=== PATIENT | female | born 1990 | race Caucasian/White ===

== ENCOUNTER 2016-04-19 16:12 | Emergency (ER) | payer OTHER ==
[~2016-04-19] VITALS: Wt 115.0 kg
[~2016-04-19 16:12] MED LIST: BACTDS PO; DOXY-220 PO; HYDR-3498 PO; IBUP-1542 PO
--- NOTE | 2016-04-19 18:03 | ERD ---
ER Documentation Chief Complaint Date/Time DATE: 04/19/16 TIME: 18:02 Chief Complaint sharp chest pain for the past week . nausea no vomiting. no diaphoresis HPI This is a 25-year-old female presenting to the emergency department complaining of sharp left-sided chest pain that radiates to the right upper quadrant for the past week and a half. Patient states that she has nausea. She denies any vomiting. She rates the pain 10 out of 10. Patient states that she has a history of cholecystectomy in 2010. She denies any diarrhea, fevers. Patient states that the pain is increased when she takes deep breath in. She denies any oral contraceptives, recent traveling or recent surgery ROS All systems reviewed and are negative except as per history of present illness. Medications Home Meds Active Scripts Acetaminophen* (Tylenol*) 325 Mg Tablet, 2 TAB PO Q6 Y for PAIN AND OR ELEVATED TEMP, #20 TAB Prov:JESSICA MORLEY PA-C 04/19/16 Ondansetron (Ondansetron Odt) 4 Mg Tab.rapdis, 4 MG PO Q6H Y for NAUSEA AND/OR VOMITING, #10 TAB Prov:JESSICA MORLEY PA-C 04/19/16 Famotidine* (Pepcid*) 20 Mg Tablet, 20 MG PO DAILY for 14 Days, TAB Prov:JESSICA MORLEY PA-C 04/19/16 Ibuprofen* (Motrin*) 600 Mg Tab, 600 MG PO Q6H Y for PAIN AND OR ELEVATED TEMP, #30 TAB Prov:ANGIE WHITE MD 03/23/16 Hydrocodone Bit-Acetaminophen* ([place]*) 5-325 Mg Tab, 1 TAB PO Q4H Y for PAIN, # 14 TAB Prov:CARINA SALAZAR 09/16/15 Doxycycline Monohydrate* (Doxycycline Monohydrate*) 100 Mg Tablet, 100 MG PO BID for 14 Days, #28 TAB Prov:CARINA SALAZAR 09/16/15 Sulfamethoxazole-Trimethoprim* (Bactrim* DS) 800-160 Mg Tab, 1 TAB PO BID for 14 Days, #28 TAB Prov:CARINA SALAZAR 09/16/15 Hydrocodone Bit-Acetaminophen* ([place]*) 5-325 Mg Tab, 1 TAB PO Q6 Y for PAIN, # 7 TAB Prov:BETTINA SILVA DO 08/06/15 Sulfamethoxazole-Trimethoprim* (Bactrim* DS) 800-160 Mg Tab, 1 TAB PO BID for 14 Days, TAB Prov:BETTINA SILVA DO 08/06/15 Hydrocodone Bit-Acetaminophen* ([place]*) 5-325 Mg Tab, 1 TAB PO Q6 Y for PAIN, # 7 TAB Prov:HECTOR JIMÉNEZ NP 07/29/15 Allergies Allergies: Coded Allergies: vancomycin (Unverified Allergy, Unknown, 03/23/16) PMhx/Soc History of Surgery: Yes (CHOLECYSTECTOMY) Anesthesia Reaction: No Hx Neurological Disorder: No Hx Respiratory Disorders: No Hx Cardiac Disorders: No Hx Psychiatric Problems: No Hx Miscellaneous Medical Probl: No Hx Alcohol Use: No Hx Substance Use: No Hx Tobacco Use: Yes Smoking Status: Never smoker Physical Exam Vitals Vital Signs Date Time Temp Pulse Resp B/P Pulse Ox O2 Delivery O2 Flow Rate FiO2 04/19/16 16:13 97.7 94 20 133/84 98 Physical Exam GENERAL: no acute distress, non-toxic appearing, sitting up in bed' Morbidly obese HENT: normocephalic/atraumatic EYES: conjunctiva is normal NECK: no noticeable or palpable swelling, no carotid bruits, no JVD CARDIOVASCULAR: RRR, good S1S2, no murmurs or gallops heard PULM: clear to auscultation, no use of accessory muscles, no crackles or wheezes. ABDOMEN: normal bowel sounds, abdomen soft Tender palpation the right upper quadrant EXT: no edema, cyanosis or clubbing MUSCULOSKELETAL: 5/5 strength, normal range of motion, no swollen or erythematous joints. NEURO: alert and oriented SKIN: no rashes, skin warm and dry, no erythematous areas BREAST: breast exam was not relevant, therefore not preformed PSYCH: normal mood and mentation, denies suicidal or homicidal ideation and thoughts Result Diagram: 04/19/16180404/19/161804 Results 24 hrs Laboratory Tests Test 04/19/16 18:00 04/19/16 18:05 Urine Bacteria MANY Urine Bilirubin NEGATIVE Urine Clarity CLOUDY Urine Color LT. YELLOW Urine Glucose NEGATIVE% Urine Hemoglobin 1+ Urine Ketones NEGATIVE Urine Leukocyte Esterase NEGATIVE Urine Microscopic RBC 2-5/HPF Urine Microscopic WBC NONE SEEN/HPF Urine Nitrite NEGATIVE Urine Specific [place] >=1.030 Urine Squamous Epithelial Cells MANY Urine Total Protein NEGATIVE Urine Urobilinogen 0.2 E.U./dL Urine pH 5.5 Alanine Aminotransferase (ALT/SGPT) 34IU/L Albumin 4.6g/dl Albumin/Globulin Ratio 1.17 Alkaline Phosphatase 110IU/L Anion Gap 18 Aspartate Amino Transf (AST/SGOT) 29IU/L Basophils # 0.110^3/ul Basophils % 0.5% Blood Morphology Comment Blood Urea Nitrogen 12mg/dl Calcium Level 9.6mg/dl Carbon Dioxide Level 28mmol/L Chloride Level 101mmol/L Creatinine 0.58mg/dl Direct Bilirubin 0.00mg/dl Eosinophils # 0.410^3/ul Eosinophils % 4.0% Globulin 3.90g/dl Glucose Level 85mg/dl Hematocrit 40.4% Hemoglobin 13.5g/dl Indirect Bilirubin 0.4mg/dl Lipase 155U/L Lymphocytes # 3.410^3/ul Lymphocytes % 30.1% Mean Corpuscular Hemoglobin 29.3pg Mean Corpuscular Hemoglobin Concent 33.4g/dl Mean Corpuscular Volume 87.9fl Mean Platelet Volume 11.0fl Monocytes # 0.710^3/ul Monocytes % 6.1% Neutrophils # 6.710^3/ul Neutrophils % 59.3% Nucleated Red Blood Cells # 0.010^3/ul Nucleated Red Blood Cells % 0.0/100WBC Platelet Count 29427^3/UL Potassium Level 4.3mmol/L Red Blood Count 4.6010^6/ul Red Cell Distribution Width 13.2% Sodium Level 143mmol/L Total Bilirubin 0.4mg/dl Total Protein 8.5g/dl Troponin I < 0.012ng/ml White Blood Count 11.210^3/ul Procedures/MDM This is a 25-year-old female presenting to the emergency department complaining of a sharp chest pain that radiates to her right upper quadrant abdomen for the past week and a half. Patient is status post cholecystectomy in 2010. On examination patient appears well, she has stable vital signs. She was speaking clearly and did not seem to be in any distress. An EKG was done and did not show any evidence of STEMI. Chest x-ray did not show any evidence of infiltrates, pneumothorax or pleural effusion.. Lab work was drawn. CBC did not show any evidence of leukocytosis or anemia. CMP did not show any evidence of renal, liver, or electrolyte abnormalities. Lipase was normal. UA did not show any evidence of hemoglobin or urinary tract infection. Lipase is normal, there was no evidence of pancreatitis. A gallbladder ultrasound was done and did not show any choledocholithiasis or dilations of the bile ducts. Patient likely has gastritis since she describes the pain worsening after food.. There was no evidence of acute abdomen or ACS or other acute cardiopulmonary conditions. Patient perked score is low, I will low suspicion for pulmonary embolism. I discussed the patient that she is suitable to follow-up with her primary care physician to get a referral to see a salvage inspector. Discussed return to the ER for any worsening signs or symptoms. Patient was given a prescription for Zofran, Pepcid and Tylenol. Patient is very stable and neurovascular intact for discharge. She understands and agrees with this plan EKG: read and signed off by myself and Jud Rate/Rhythm: 89 bpm sinus arrhythmia QRS, ST, T-waves: No changes consistent w/ acute ischemia Impression: No evidence of ischemia or arrhythmia Departure Diagnosis: Primary Impression: Chest pain Chest pain type: unspecified Qualified Code: R07.9 - Chest pain, unspecified type Additional Impression: Abdominal pain Abdominal location: right upper quadrant Qualified Code: R10.11 - Right upper quadrant abdominal pain Condition: Stable JESSICA MORLEY PA-C Apr 19, 2016 18:03
[2016-04-19 18:23] LABS: BASOPHIL # 0.1 10^3/ul (0.0-0.1); BASOPHILS % 0.5 % (0.0-2.0); EOSINOPHILS # 0.4 10^3/ul (0.0-0.5); HEMATOCRIT 40.4 % (37.0-47.0); HEMOGLOBIN 13.5 g/dl (12.0-16.0); LYMPHOCYTES # 3.4 10^3/ul (0.8-2.9); LYMPHOCYTES % 30.1 % (15.0-51.0); MEAN CORPUSCULAR HEMOGLOBIN 29.3 pg (29.0-33.0); MEAN CORPUSCULAR HGB CONC 33.4 g/dl (32.0-37.0); MEAN CORPUSCULAR VOLUME 87.9 fl (82.0-101.0); MONOCYTE # 0.7 10^3/ul (0.3-0.9); MONOCYTES % 6.1 % (0.0-11.0); NEUTROPHIL # 6.7 10^3/ul (1.6-7.5); NEUTROPHILS % 59.3 % (39.0-77.0); PLATELET COUNT 253 10^3/UL (140-440); RED CELL DISTRIBUTION WIDTH 13.2 % (11.5-14.5); UNCORRECTED WBC 11.2 10^3/ul (4.8-10.8); WHITE BLOOD COUNT 11.2 10^3/ul (4.8-10.8)
[2016-04-19 18:24] LABS: ADD UMIC YES; URINE BILIRUBIN (Dip) NEGATIVE (NEGATIVE); URINE BLOOD (Dip) 1+ (NEGATIVE); URINE COLOR LT. YELLOW (YELLOW); URINE GLUCOSE (Dip) NEGATIVE (NEGATIVE); URINE KETONES (Dip) NEGATIVE (NEGATIVE); URINE LEUKOCYTE ESTERASE (Dip) NEGATIVE (NEGATIVE); URINE NITRITE (Dip) NEGATIVE (NEGATIVE); URINE TOTAL PROTEIN (Dip) NEGATIVE (NEGATIVE); URINE UROBILINOGEN (Dip) 0.2 E.U./dL (0.1-1.0)
[2016-04-19 18:25] LABS: CONDITION 1
[2016-04-19 18:39] LABS: ALBUMIN 4.6 g/dl (3.3-4.9); CHLORIDE 101 mmol/L (97-110); SODIUM 143 mmol/L (135-144)
[2016-04-19 18:40] LABS: POTASSIUM 4.3 mmol/L (3.5-5.1)
[2016-04-19 18:41] LABS: CREATININE 0.58 mg/dl (0.44-1.00)
[2016-04-19 18:42] LABS: ALANINE AMINOTRANSFERASE 34 IU/L (13-69); ALBUMIN/GLOBULIN RATIO 1.17; ALKALINE PHOSPHATASE 110 IU/L (42-121); ANION GAP 18 (8-16); ASPARTATE AMINO TRANSFERASE 29 IU/L (15-46); BILIRUBIN,INDIRECT 0.4 mg/dl (0-1.1); BILIRUBIN,TOTAL 0.4 mg/dl (0.2-1.3); BLOOD UREA NITROGEN 12 mg/dl (7-20); CALCIUM 9.6 mg/dl (8.4-10.2); CARBON DIOXIDE 28 mmol/L (21-31); GLUCOSE 85 mg/dl (70-220); TOTAL PROTEIN 8.5 g/dl (6.1-8.1)
[2016-04-19 18:42] LABS: BACTERIA,URINE MANY; SQUAMOUS EPITHELIAL CELL,UR MANY
[2016-04-19 18:54] LABS: TROPONIN-I < 0.012 ng/ml (0.00-0.12)
--- NOTE | 2016-04-19 19:00 | RADRPT ---
PROCEDURE: Chest x-ray CLINICAL INDICATION: Palpitations TECHNIQUE: Chest single view COMPARISON: None FINDINGS: The heart is normal in size. The pulmonary vessels are normal in caliber. The lungs are clear. Th e costophrenic angles are sharp. The visualized bony thorax is unremarkable. IMPRESSION: No acute cardiopulmonary disease. RPTAT: HH .Sang Kauffman MD, MD Date Time Electronically viewed and signed by .Sang Kauffman MD, on 04/19/2016 19:00 .W/
--- NOTE | 2016-04-19 19:01 | RADRPT ---
PROCEDURE: US gallbladder . CLINICAL INDICATION: Prior cholecystectomy, now with right upper quadrant pain. TECHNIQUE: Multiple real-time images were acquired of the patient's abdomen utilizing a high resol ution transducer. COMPARISON: None FINDINGS: Gallbladder is surgically absent. Gallbladder fossa is not visualized secondary to overlying bowel gas. The common bile duct measures 2 mm in maximal dimension. No free fluid is identified. Right kidney measures 119 x 48 x 55 mm. No evident renal mass, hydrone phrosis retained calculus. Liver measures 153 mm. IMPRESSION: 1. Gallbladder fossa is not visualized secondary to overlying bowel gas. 2. Otherwise, no acute process in the upper quadrant. RPTAT: [facility] Physician Yisel Date Time Electronically viewed and signed by Physician Yisel on 04/19/2016 19:00 RS/
[2016-04-19] MEDS ORDERED: ONDA4TAB14 PO (19:07)
[2016-04-19] MEDS ORDERED: FAMO-18 PO (19:07)
[2016-04-19] MEDS ORDERED: ACET325T33 PO (19:07)
== END 2016-04-19 19:19 | disposition home or self-care (01) ==
LOC: FTE 16:12
DX: R07.9 Chest pain, unspecified (principal); R10.11 Right upper quadrant pain; R11.0 Nausea
CPT/HCPCS: 71010; 76705; 80053; 81001; 83690; 84484; 85025; 93005; Z7502; 81003

== ENCOUNTER 2016-05-26 19:24 | Emergency (ER) | payer OTHER ==
[~2016-05-26] VITALS: Ht 165.1 cm; Wt 120.0 kg
[~2016-05-26 19:24] MED LIST changes: +ACET325T33 PO; +FAMO-18 PO; +ONDA4TAB14 PO
[2016-05-26 19:32] VITALS: Ht 165.1 cm; Wt 120.0 kg
[2016-05-26] MEDS ORDERED: LIDOCAINE 1% (MDV) 20 ML INJ SC ONE (20:30)
[2016-05-26] MEDS ORDERED: IBUPROFEN 800 MG TAB PO ONE (21:00)
[2016-05-26] MEDS ORDERED: METR500T PO (21:07)
[2016-05-26] MEDS ORDERED: MUPI22OI2 NASAL (21:07)
[2016-05-26] MEDS ORDERED: CEPH-443 PO (21:07)
[2016-05-26] MEDS ORDERED: IBUP800T25 PO (21:08)
--- NOTE | 2016-05-26 21:34 | ERD ---
ER Documentation Chief Complaint Date/Time DATE: 05/26/16 TIME: 21:10 Chief Complaint abscess between legs for past 2 days HPI 25-year-old female presents to ED complaining of abscess in the right buttocks 2 days. Patient reports pain, and able to sit down. She did not take any pain medications at home. Patient also reports that she gets frequent cellulitis and abscesses, almost once every month. She is also concerned that she may be allergic to sulfa medications. States that every time she took sulfa she has red, itchy spots on her abdomen. She took one sulfa antibiotic tablets yesterday. Denies fever or chills. Denies shortness of breath. Denies oral swelling. In addition patient is complaining of vaginal itching with fishy odors. Patient stated that she had had this for quite some time. Denies vaginal discharge. Denies pelvic pain. ROS All systems reviewed and are negative except as per history of present illness. Medications Home Meds Active Scripts Ibuprofen* (Motrin*) 800 Mg Tab, 800 MG PO Q8 Y for PAIN AND OR ELEVATED TEMP, # 30 TAB Prov:GE LUNDBERG NP 05/26/16 Mupirocin* (Bactroban*) 2% -22 Gram Oint...g., 1 APPLIC NASAL BID for 14 Days, EA Prov:GE LUNDBERG NP 05/26/16 Metronidazole* (Flagyl*) 500 Mg Tablet, 500 MG PO TID for 7 Days, TAB Prov:GE LUNDBERG NP 05/26/16 Cephalexin* (Keflex*) 500 Mg Capsule, 500 MG PO QID for 7 Days, CAP Prov:GE LUNDBERG NP 05/26/16 Acetaminophen* (Tylenol*) 325 Mg Tablet, 2 TAB PO Q6 Y for PAIN AND OR ELEVATED TEMP, #20 TAB Prov:JESSICA MORLEY PA-C 04/19/16 Ondansetron (Ondansetron Odt) 4 Mg Tab.rapdis, 4 MG PO Q6H Y for NAUSEA AND/OR VOMITING, #10 TAB Prov:JESSICA MORLEY PA-C 04/19/16 Famotidine* (Pepcid*) 20 Mg Tablet, 20 MG PO DAILY for 14 Days, TAB Prov:JESSICA MORLEY PA-C 04/19/16 Ibuprofen* (Motrin*) 600 Mg Tab, 600 MG PO Q6H Y for PAIN AND OR ELEVATED TEMP, #30 TAB Prov:ANGIE WHITE MD 03/23/16 Hydrocodone Bit-Acetaminophen* ([place]*) 5-325 Mg Tab, 1 TAB PO Q4H Y for PAIN, # 14 TAB Prov:CARINA SALAZAR 09/16/15 Doxycycline Monohydrate* (Doxycycline Monohydrate*) 100 Mg Tablet, 100 MG PO BID for 14 Days, #28 TAB Prov:MORENO SALAZARSON 09/16/15 Sulfamethoxazole-Trimethoprim* (Bactrim* DS) 800-160 Mg Tab, 1 TAB PO BID for 14 Days, #28 TAB Prov:CARINA SALAZAR 09/16/15 Hydrocodone Bit-Acetaminophen* ([place]*) 5-325 Mg Tab, 1 TAB PO Q6 Y for PAIN, # 7 TAB Prov:BETTINA SILVA DO 08/06/15 Sulfamethoxazole-Trimethoprim* (Bactrim* DS) 800-160 Mg Tab, 1 TAB PO BID for 14 Days, TAB Prov:RICARDOBETTINA DO 08/06/15 Hydrocodone Bit-Acetaminophen* ([place]*) 5-325 Mg Tab, 1 TAB PO Q6 Y for PAIN, # 7 TAB Prov:HECTOR JIMÉNEZ NP 07/29/15 Allergies Allergies: Coded Allergies: vancomycin (Unverified Allergy, Unknown, 03/23/16) Uncoded Allergies: SULFA (Allergy, Intermediate, Rash, 05/26/16) PMhx/Soc Medical and Surgical Hx: pt denies Medical Hx History of Surgery: Yes (CHOLECYSTECTOMY) Anesthesia Reaction: No Hx Neurological Disorder: No Hx Respiratory Disorders: No Hx Cardiac Disorders: No Hx Psychiatric Problems: No Hx Miscellaneous Medical Probl: No Hx Alcohol Use: No Hx Substance Use: No Hx Tobacco Use: Yes Smoking Status: Current every day smoker Physical Exam Vitals Vital Signs Date Time Temp Pulse Resp B/P Pulse Ox O2 Delivery O2 Flow Rate FiO2 05/26/16 19:32 98.6 120 18 154/91 97 Physical Exam General impression: Well-developed, well-nourished. Alert, oriented, in no acute distress Head: Normocephalic, atraumatic. ENT: Nasal mucosa, oral mucosa and oropharynx are normal. Neck: Supple, nontender. No lymphadenopathy. No nuchal rigidity. Respiration: Normal respiratory effort. Lungs clear to auscultate bilaterally. No wheezes, rales or rhonchi. Cardiovascular: Regular rate and rhythm. No murmurs or extra heart sounds. Neuro: Mental status normal, speech normal. TICKET MARKER grossly intact. Skin: Normal turgor. A 3 cm size erythema induration noted on the right buttock, with slight fluctuance in the middle. Patient also has 2 erythematous macules on her torso. Psych: Normal mood and affect. Results 24 hrs Current Medications Medications (Trade) Dose Ordered Sig/Vito Route PRN Reason Start Time Stop Time Status Last Admin Dose Admin Lidocaine (Xylocaine 1% (Mdv) 20 ml) 20 ml ONCE ONCE SC 05/26/16 20:30 05/26/16 20:32 DC Ibuprofen (Motrin) 800 mg ONCE ONCE PO 05/26/16 21:00 05/26/16 21:01 DC 05/26/16 20:48 Procedures/MDM Procedure note: Incision and Drainage Verbal consent obtained for incision and drainage of patient's abscess. The area was prepped with Betadine. Lidocaine 1% was infiltrated for local anesthesia. After appropriate anesthesia, incision was made using #11 blade. Small amount of purulent discharge was drained from the abscess. The abscess was probed for loculation. The wound was then cleaned and dressed. Patient tolerated procedure well. Medical decision-making: Well-appearing 25-year-old female presented to ED with abscess in her right buttock. Abscess was drained. Patient is concerned for possible sulfa allergy. Although her lesions not has appearance of allergic reaction, I decided not to give her Bactrim today. Keflex will be prescribed. In addition , Bactroban ointment applied nasally twice daily for 2 weeks is also prescribed for the patient to eradicate MRSA as a suspect patient may have colonization. Patient also reports symptoms consistent with bacterial vaginitis. I will prescribe Flagyl for her. Patient advised to follow-up with her PCP in 2 days for wound check. Departure Diagnosis: Primary Impression: Abscess Additional Impression: Bacterial vaginitis Condition: Good Patient Instructions: Abscess, Incision And Drainage, Vaginitis, Bacterial Additional Instructions: Return to this facility in 2 DAYS for a follow-up exam.Return sooner if your condition worsens. GE LUNDBERG NP May 26, 2016 21:28
== END 2016-05-26 21:13 | disposition home or self-care (01) ==
LOC: FTE 19:24
DX: L02.31 Cutaneous abscess of buttock (principal); N76.0 Acute vaginitis; F17.210 Nicotine dependence, cigarettes, uncomplicated
CPT/HCPCS: 10060; Z7502; Z7610

== ENCOUNTER 2016-06-28 17:38 | Emergency (ER) | payer OTHER ==
[~2016-06-28] VITALS: Wt 127.0 kg
[~2016-06-28 17:38] MED LIST changes: +CEPH-443 PO; +IBUP800T25 PO; +METR500T PO; +MUPI22OI2 NASAL
--- NOTE | 2016-06-28 19:23 | ERD ---
ER Documentation Chief Complaint Date/Time DATE: 06/28/16 TIME: 19:21 Chief Complaint LOW BACK PAIN INCREASING PAST FEW WKS. TRAUMA 3 YRS AGO. NO RECENT TRAUMA HPI This is a 25-year-old female that presents to the ER with lower back pain that has been going on intermittently for the last year. Over the last week patient states that back pain has gotten significantly worse it is sharp in nature it is worse whenever patient bends forward. She does not have any pain while walking she's leaning forward. Patient states that 2 years ago she fell down stairs hurting her back, patient however never went to the doctor. Patient denies any urinary bowel incontinence. She denies any urinary frequency or dysuria. Patient denies any fevers or chills. She denies any IV drug use. She went to her primary care doctor and was given trauma all, however this has not helped her pain. ROS 12 point review of systems was done, all negative except per HPI. Medications Home Meds Active Scripts Ibuprofen* (Motrin*) 600 Mg Tab, 600 MG PO Q6, #30 TAB Prov:MARCI SCHULTZ 06/28/16 Hydrocodone/Acetaminophen ([place] 5-325 Tablet) 1 Each Tablet, 1 TAB PO Q6H Y for PAIN, #10 TAB Prov:MARCI SCHULTZ 06/28/16 Orphenadrine Citrate (Norflex) 100 Mg Tablet.sa, 100 MG PO BID for 5 Days, TAB.SA Prov:MARCI SCHULTZ 06/28/16 Ibuprofen* (Motrin*) 800 Mg Tab, 800 MG PO Q8 Y for PAIN AND OR ELEVATED TEMP, # 30 TAB Prov:GE LUNDBERG NP 05/26/16 Mupirocin* (Bactroban*) 2% -22 Gram Oint...g., 1 APPLIC NASAL BID for 14 Days, EA Prov:GE LUNDBERG NP 05/26/16 Metronidazole* (Flagyl*) 500 Mg Tablet, 500 MG PO TID for 7 Days, TAB Prov:GE LUNDBERG SEARCH LEAD 05/26/16 Cephalexin* (Keflex*) 500 Mg Capsule, 500 MG PO QID for 7 Days, CAP Prov:GE LUNDBERG SEARCH LEAD 05/26/16 Acetaminophen* (Tylenol*) 325 Mg Tablet, 2 TAB PO Q6 Y for PAIN AND OR ELEVATED TEMP, #20 TAB Prov:JESSICA MORLEY PA-C 04/19/16 Ondansetron (Ondansetron Odt) 4 Mg Tab.rapdis, 4 MG PO Q6H Y for NAUSEA AND/OR VOMITING, #10 TAB Prov:JESSICA MORLEY PA-C 04/19/16 Famotidine* (Pepcid*) 20 Mg Tablet, 20 MG PO DAILY for 14 Days, TAB Prov:JESSICA MORLEY PA-C 04/19/16 Ibuprofen* (Motrin*) 600 Mg Tab, 600 MG PO Q6H Y for PAIN AND OR ELEVATED TEMP, #30 TAB Prov:ANGIE WHITE MD 03/23/16 Hydrocodone Bit-Acetaminophen* ([place]*) 5-325 Mg Tab, 1 TAB PO Q4H Y for PAIN, # 14 TAB Prov:CARINA SALAZAR 09/16/15 Doxycycline Monohydrate* (Doxycycline Monohydrate*) 100 Mg Tablet, 100 MG PO BID for 14 Days, #28 TAB Prov:CARINA SALAZAR 09/16/15 Sulfamethoxazole-Trimethoprim* (Bactrim* DS) 800-160 Mg Tab, 1 TAB PO BID for 14 Days, #28 TAB Prov:CARINA SALAZAR 09/16/15 Hydrocodone Bit-Acetaminophen* ([place]*) 5-325 Mg Tab, 1 TAB PO Q6 Y for PAIN, # 7 TAB Prov:BETTINA SILVA DO 08/06/15 Sulfamethoxazole-Trimethoprim* (Bactrim* DS) 800-160 Mg Tab, 1 TAB PO BID for 14 Days, TAB Prov:BETTINA SILVA DO 08/06/15 Hydrocodone Bit-Acetaminophen* ([place]*) 5-325 Mg Tab, 1 TAB PO Q6 Y for PAIN, # 7 TAB Prov:HECTOR JIMÉNEZ NP 07/29/15 Allergies Allergies: Coded Allergies: vancomycin (Unverified Allergy, Unknown, 03/23/16) Uncoded Allergies: SULFA (Allergy, Intermediate, Rash, 05/26/16) PMhx/Soc History of Surgery: Yes (CHOLECYSTECTOMY) Anesthesia Reaction: No Hx Neurological Disorder: No Hx Respiratory Disorders: No Hx Cardiac Disorders: No Hx Psychiatric Problems: No Hx Miscellaneous Medical Probl: No Hx Alcohol Use: No Hx Substance Use: No Hx Tobacco Use: Yes Smoking Status: Never smoker Physical Exam Vitals Vital Signs Date Time Temp Pulse Resp B/P Pulse Ox O2 Delivery O2 Flow Rate FiO2 06/28/16 18:06 98.8 79 20 141/90 97 Physical Exam GENERAL: The patient is well developed and appropriate for usual state of health , in no apparent distress. NECK: C-spine is soft and supple. There is no cervical lymphadenopathy. CHEST: Clear to auscultation bilaterally. There are no rales, wheezes or rhonchi. HEART: Regular rate and rhythm. No murmurs, clicks, rubs or gallops. ABDOMEN: Soft, nontender and nondistended. Good bowel sounds. No rebound or guarding. No gross peritonitis. No gross organomegaly or masses. No Arshad sign or McBurney point tenderness. No pulsatile abdominal mass. BACK: No midline or flank tenderness. Tender to palpation from L3-L5. Tense paraspinal muscles. Negative leg raise test. No step- offs. EXTREMITIES: Equal pulses bilaterally. There is no peripheral clubbing, cyanosis or edema. No focal swelling or erythema. Full range of motion. Grossly neurovascularly intact. NEURO: Alert and oriented. Cranial nerves II through XII are intact. Motor strength in all 4 extremities with 5/5 strength. Sensation grossly intact. Normal speech and gait. SKIN: There is no apparent rash or petechia. The skin is warm and dry. Results 24 hrs Laboratory Tests Test 06/28/16 19:24 Bedside Urine pH (LAB) 6.5 Bedside Urine Protein (LAB) Negative Bedside Urine Glucose (UA) Negative Bedside Urine Ketones (LAB) Negative Bedside Urine Blood 2+ Bedside Urine Nitrite (LAB) Negative Bedside Urine Leukocyte Esterase (L Negative Current Medications Medications (Trade) Dose Ordered Sig/Vito Route PRN Reason Start Time Stop Time Status Last Admin Dose Admin Naproxen (Naprosyn) 500 mg ONCE ONCE PO 06/28/16 19:30 06/28/16 19:31 DC 06/28/16 19:34 Diazepam (Valium) 2 mg ONCE ONCE PO 06/28/16 19:30 06/28/16 19:31 DC 06/28/16 19:34 Procedures/MDM Differential Diagnosis includes but is not limited to back strain, vertebral fracture, epidural abscess, cauda equina, herniated disc, AAA rupture, kidney stones, UTI, pyelonephritis. Patient's pain is likely muscular in nature. At this time there is no evidence of fractures or dislocations. Patient is afebrile and well-appearing. Patient is neurovascularly intact. Suspicion for cauda equina is low. Patient will be sent home with [place], Norflex, ibuprofen. She urgently needs to follow-up with her primary care doctor and request a possible MRI for further testing. My medical decision making was shared with the patient she understands and agrees with plan. Departure Diagnosis: Primary Impression: Back pain Condition: Stable MARIC SCHULTZ Jun 28, 2016 19:23
[2016-06-28 19:25] LABS: URINE BLOOD (Dip) POC 2+ (NEGATIVE)
[2016-06-28] MEDS ORDERED: NAPROXEN 500 MG TAB PO ONE (19:30)
[2016-06-28] MEDS ORDERED: DIAZEPAM 2 MG TAB PO ONE (19:30)
--- NOTE | 2016-06-28 19:55 | RADRPT ---
PROCEDURE: XR Lumbar Spine. CLINICAL INDICATION: Back pain. TECHNIQUE: Three views. AP, lateral and cone-down lateral view of the lumbar spine were obtained. COMPARISON: No prior studies are available for comparison. FINDINGS: There is normal stature and alignment of the vertebrae. There is no fracture. There is no lytic or blastic lesion. The disk height is normal. The paravertebral soft tissues are unremarkable. IMPRESSION: 1. Unremarkable images of the lumbar spine. RPTAT: QQ .Edgard Lowry MD, Date Time Electronically viewed and signed by .Edgard Lowry MD, on 06/28/2016 19:55 .R/
[2016-06-28] MEDS ORDERED: IBUP-1542 PO (20:17)
[2016-06-28] MEDS ORDERED: ORPH100T PO (20:17)
[2016-06-28] MEDS ORDERED: HYDR-906 PO (20:17)
== END 2016-06-28 21:07 | disposition home or self-care (01) ==
LOC: FTE 17:38
DX: M54.5 Low back pain (principal)
CPT/HCPCS: 72100; 81003; Z7610

== ENCOUNTER 2017-02-20 15:04 | Emergency (ER) | payer OTHER ==
[~2017-02-20] VITALS: Ht 165.1 cm; Wt 113.1 kg
[~2017-02-20 15:04] MED LIST changes: -FAMO-18 PO; +FAMO-96 PO; +HYDR-906 PO; +ORPH100T PO
[2017-02-20 15:10] VITALS: Ht 165.1 cm; Wt 113.1 kg
[2017-02-20] MEDS ORDERED: SOD CHLORIDE 0.9% 1,000 ML IV STA (15:33)
[2017-02-20] MEDS ORDERED: METOCLOPRAMIDE 10 MG INJ IV STA (15:34)
[2017-02-20] MEDS ORDERED: KETOROLAC 30 MG INJ IV STA (15:34)
[2017-02-20] MEDS ORDERED: DIPHENHYDRAMINE 50 MG INJ IV STA (15:34)
[2017-02-20 16:27] LABS: BASOPHIL # 0.1 10^3/ul (0.0-0.1); BASOPHILS % 0.5 % (0.0-2.0); EOSINOPHILS # 0.5 10^3/ul (0.0-0.5); EOSINOPHILS % 4.1 % (0.0-7.0); HEMATOCRIT 41.6 % (37.0-47.0); HEMOGLOBIN 13.8 g/dl (12.0-16.0); LYMPHOCYTES # 3.5 10^3/ul (0.8-2.9); LYMPHOCYTES % 31.8 % (15.0-51.0); MEAN CORPUSCULAR HEMOGLOBIN 29.9 pg (29.0-33.0); MEAN CORPUSCULAR HGB CONC 33.2 g/dl (32.0-37.0); MEAN CORPUSCULAR VOLUME 90.2 fl (82.0-101.0); MEAN PLATELET VOLUME 12.9 fl (7.4-10.4); MONOCYTE # 0.6 10^3/ul (0.3-0.9); MONOCYTES % 5.3 % (0.0-11.0); NEUTROPHIL # 6.4 10^3/ul (1.6-7.5); PLATELET COUNT 266 10^3/UL (140-415); RED BLOOD COUNT 4.61 10^6/ul (4.20-5.40); RED CELL DISTRIBUTION WIDTH 12.5 % (11.5-14.5)
[2017-02-20 16:30] LABS: ADD UMIC YES; UR ASCORBIC ACID 20 mg/dL (NEGATIVE); UR BILIRUBIN (Dip) NEGATIVE (NEGATIVE); UR BLOOD (Dip) 1+ mg/dL (NEGATIVE); UR CLARITY CLEAR (CLEAR); UR COLOR YELLOW (YELLOW); UR GLUCOSE (Dip) NEGATIVE (NEGATIVE); UR KETONES (Dip) NEGATIVE (NEGATIVE); UR LEUKOCYTE ESTERASE (Dip) NEGATIVE Leu/ul (NEGATIVE); UR MUCUS FEW /HPF (NONE SEEN); UR NITRITE (Dip) NEGATIVE (NEGATIVE); UR RBC 1 /HPF (0-5); UR SPECIFIC GRAVITY (Dip) 1.028 (1.003-1.030); UR SQUAMOUS EPITHELIAL CELL FEW /HPF (FEW); UR TOTAL PROTEIN (Dip) NEGATIVE (NEGATIVE); UR UROBILINOGEN (Dip) NEGATIVE (NEGATIVE)
--- NOTE | 2017-02-20 16:48 | RADRPT ---
PROCEDURE: CT Brain without. CLINICAL INDICATION: Headache. TECHNIQUE: A CT of the brain was performed on multidetector high-resolution CT scanner utilizing a xial sections from the skull base through the vertex without contrast. The scan was reviewed in sof t tissue brain and high frequency resolution bone algorithm windows. Images were reviewed on a high -resolution PACS workstation. One or more the following does reduction techniques were utilized: Aut omated exposure control, adjustment of the mA/ or kV according to patient's size, or use of iterativ e reconstruction technique. The exam CTDI = 43.27 mGy and the DLP = 720.23 mGy-cm. DICOM images are available. COMPARISON: None available. FINDINGS: The ventricles and sulci are age-appropriate. There is no intracranial hemorrhage, mass effect or mi dline shift. No abnormal intra-axial or extra-axial fluid collections are seen. The bonner/white werner er differentiation is preserved. No acute skull abnormality is noted. The visualized paranasal sinus es demonstrate mild mucosal thickening mainly in ethmoid air cells. The mastoid air cells are essent ially clear. IMPRESSION: 1. No acute intracranial hemorrhage, transcortical infarction or mass effect. RPTAT: HFN .Tani James MD, MD Date Time Electronically viewed and signed by .Tani James MD, MD on 02/20/2017 16:48 .N/
[2017-02-20 17:26] LABS: ALBUMIN 4.1 g/dl (3.3-4.9); BILIRUBIN,INDIRECT 0.4 mg/dl (0-1.1); BILIRUBIN,TOTAL 0.4 mg/dl (0.2-1.3); CALCIUM 9.4 mg/dl (8.4-10.2); CREATININE 0.67 mg/dl (0.44-1.00); TOTAL PROTEIN 8.2 g/dl (6.1-8.1)
[2017-02-20] MEDS ORDERED: NAPR-260 PO (17:41)
[2017-02-20 17:53] VITALS: BP 109/65; PULSE 80; RESP 20; TEMP 98.3
--- NOTE | 2017-02-20 19:00 | ERD ---
ER Documentation Chief Complaint Chief Complaint right facial pain x 2 days radiating right side of head and neck HPI 6-year-old female complaining of right-sided facial pain and headache 2 days. Patient denies acute traumatic injury. Denies vomiting. Has mild dizziness occasionally. Has no history of migraines or headaches. Patient is unsure of the cause of her right-sided head pain. Denies any weakness. ROS All systems reviewed and are negative except as per history of present illness. Medications Home Meds Active Scripts Naproxen* (Naprosyn*) 500 Mg Tablet, 500 MG PO BID Y for PAIN AND/OR INFLAMMATION, #30 TAB Prov:KIANA GRANGER PA-C 02/20/17 Ibuprofen* (Motrin*) 600 Mg Tab, 600 MG PO Q6, #30 TAB Prov:MARCI SCHULTZ 06/28/16 Hydrocodone/Acetaminophen ([place] 5-325 Tablet) 1 Each Tablet, 1 TAB PO Q6H Y for PAIN, #10 TAB Prov:MARCI SCHULTZ 06/28/16 Orphenadrine Citrate (Norflex) 100 Mg Tablet.sa, 100 MG PO BID for 5 Days, TAB.SA Prov:MARCI SCHULTZ 06/28/16 Ibuprofen* (Motrin*) 800 Mg Tab, 800 MG PO Q8 Y for PAIN AND OR ELEVATED TEMP, # 30 TAB Prov:GE LUNDBERG NP 05/26/16 Mupirocin* (Bactroban*) 2% -22 Gram Oint...g., 1 APPLIC NASAL BID for 14 Days, EA Prov:GE LUNDBERG NP 05/26/16 Metronidazole* (Flagyl*) 500 Mg Tablet, 500 MG PO TID for 7 Days, TAB Prov:GE LUNDBERG NP 05/26/16 Cephalexin* (Keflex*) 500 Mg Capsule, 500 MG PO QID for 7 Days, CAP Prov:GE LUNDBERG NP 05/26/16 Acetaminophen* (Tylenol*) 325 Mg Tablet, 2 TAB PO Q6 Y for PAIN AND OR ELEVATED TEMP, #20 TAB Prov:JESSICA MORLEY PA-C 04/19/16 Ondansetron (Ondansetron Odt) 4 Mg Tab.rapdis, 4 MG PO Q6H Y for NAUSEA AND/OR VOMITING, #10 TAB Prov:JESSICA MORLEY PA-C 04/19/16 Famotidine* (Pepcid*) 20 Mg Tablet, 20 MG PO DAILY for 14 Days, TAB Prov:JESSICA MORLEY PA-C 04/19/16 Ibuprofen* (Motrin*) 600 Mg Tab, 600 MG PO Q6H Y for PAIN AND OR ELEVATED TEMP, #30 TAB Prov:ANGIE WHITE MD 03/23/16 Hydrocodone Bit-Acetaminophen* ([place]*) 5-325 Mg Tab, 1 TAB PO Q4H Y for PAIN, # 14 TAB Prov:CARINA SALAZAR 09/16/15 Doxycycline Monohydrate* (Doxycycline Monohydrate*) 100 Mg Tablet, 100 MG PO BID for 14 Days, #28 TAB Prov:CARINA SALAZAR 09/16/15 Sulfamethoxazole-Trimethoprim* (Bactrim* DS) 800-160 Mg Tab, 1 TAB PO BID for 14 Days, #28 TAB Prov:CARINA SALAZAR 09/16/15 Hydrocodone Bit-Acetaminophen* ([place]*) 5-325 Mg Tab, 1 TAB PO Q6 Y for PAIN, # 7 TAB Prov:BETTINA SILVA DO 08/06/15 Sulfamethoxazole-Trimethoprim* (Bactrim* DS) 800-160 Mg Tab, 1 TAB PO BID for 14 Days, TAB Prov:BETTINA SILVA DO 08/06/15 Hydrocodone Bit-Acetaminophen* ([place]*) 5-325 Mg Tab, 1 TAB PO Q6 Y for PAIN, # 7 TAB Prov:HECTOR JIMÉNEZ NP 07/29/15 Allergies Allergies: Coded Allergies: vancomycin (Unverified Allergy, Unknown, 03/23/16) Uncoded Allergies: SULFA (Allergy, Intermediate, Rash, 05/26/16) PMhx/Soc History of Surgery: No Anesthesia Reaction: No Hx Neurological Disorder: No Hx Respiratory Disorders: No Hx Cardiac Disorders: No Hx Psychiatric Problems: No Hx Miscellaneous Medical Probl: No Hx Alcohol Use: No Hx Substance Use: No Hx Tobacco Use: No Smoking Status: Never smoker Physical Exam Vitals Vital Signs Date Time Temp Pulse Resp B/P Pulse Ox O2 Delivery O2 Flow Rate FiO2 02/20/17 17:53 98.3 80 20 109/65 100 Room Air 02/20/17 15:10 97.6 84 18 128/87 99 Physical Exam GENERAL: The patient is well-appearing, well-nourished, in no acute distress HEENT: Atraumatic. Conjunctivae are pink. Pupils equal, round, and reactive to light. There is no scleral icterus. Tympanic membranes clear bilaterally. Oropharynx clear. No nystagmus or photophobia. NECK: C-spine is soft and supple. There is no meningismus. There is no cervical lymphadenopathy. No JVD. No bruits. No goiter. CHEST: Clear to auscultation bilaterally. There are no rales, wheezes or rhonchi. HEART: Regular rate and rhythm. No murmurs, clicks, rubs or gallops. No S3 or S4. EXTREMITIES: Equal pulses bilaterally. There is no peripheral clubbing, cyanosis or edema. No focal swelling or erythema. Full range of motion. Grossly neurovascularly intact. NEUROLOGIC: Alert and oriented. Cranial nerves II through XII intact. Motor strength in all 4 extremities with 5 out of 5 strength. Sensation grossly intact. Normal speech and gait. Babinski negative. DTR 2+ throughout. SKIN: There is no apparent rash or petechiae. The skin is warm and dry. Result Diagram: 02/20/17 1617 02/20/17 1617 Results 24 hrs Laboratory Tests Test 02/20/17 16:17 White Blood Count 11.010^3/ul Red Blood Count 4.6110^6/ul Hemoglobin 13.8g/dl Hematocrit 41.6% Mean Corpuscular Volume 90.2fl Mean Corpuscular Hemoglobin 29.9pg Mean Corpuscular Hemoglobin Concent 33.2g/dl Red Cell Distribution Width 12.5% Platelet Count 54764^3/UL Mean Platelet Volume 12.9fl Neutrophils % 58.0% Lymphocytes % 31.8% Monocytes % 5.3% Eosinophils % 4.1% Basophils % 0.5% Nucleated Red Blood Cells % 0.0/100WBC Neutrophils # 6.410^3/ul Lymphocytes # 3.510^3/ul Monocytes # 0.610^3/ul Eosinophils # 0.510^3/ul Basophils # 0.110^3/ul Nucleated Red Blood Cells # 0.010^3/ul Urine Color YELLOW Urine Clarity CLEAR Urine pH 5.0 Urine Specific [place] 1.028 Urine Ketones NEGATIVEmg/dL Urine Nitrite NEGATIVEmg/dL Urine Bilirubin NEGATIVEmg/dL Urine Urobilinogen NEGATIVEmg/dL Urine Leukocyte Esterase NEGATIVELeu/ul Urine Microscopic RBC 1/HPF Urine Microscopic WBC 1/HPF Urine Squamous Epithelial Cells FEW/HPF Urine Mucus FEW/HPF Urine Hemoglobin 1+mg/dL Urine Glucose NEGATIVEmg/dL Urine Total Protein NEGATIVEmg/dl Sodium Level 145mmol/L Potassium Level 4.0mmol/L Chloride Level 106mmol/L Carbon Dioxide Level 26mmol/L Anion Gap 17 Blood Urea Nitrogen 12mg/dl Creatinine 0.67mg/dl Glucose Level 83mg/dl Calcium Level 9.4mg/dl Total Bilirubin 0.4mg/dl Direct Bilirubin 0.00mg/dl Indirect Bilirubin 0.4mg/dl Aspartate Amino Transf (AST/SGOT) 32IU/L Alanine Aminotransferase (ALT/SGPT) 37IU/L Alkaline Phosphatase 113IU/L Total Protein 8.2g/dl Albumin 4.1g/dl Globulin 4.10g/dl Albumin/Globulin Ratio 1.00 Lipase 213U/L Serum HCG, Qualitative NEGATIVE Current Medications Medications (Trade) Dose Ordered Sig/Vito Route PRN Reason Start Time Stop Time Status Last Admin Dose Admin Sodium Chloride (NS) 1,000 ml @ 1,000 mls/hr Q1H STAT IV 02/20/17 15:33 02/20/17 16:32 DC 02/20/17 16:26 Metoclopramide HCl (Reglan) 10 mg ONCE STAT IV 02/20/17 15:34 02/20/17 15:35 DC 02/20/17 16:27 Ketorolac Tromethamine (Toradol) 30 mg ONCE STAT IV 02/20/17 15:34 02/20/17 15:35 DC 02/20/17 16:27 Diphenhydramine HCl (Benadryl) 25 mg ONCE STAT IV 02/20/17 15:34 02/20/17 15:35 DC 02/20/17 16:27 Procedures/MDM DIAGNOSTIC IMAGING REPORT Patient: AMANDEEP BOWEN : 1990 Age: 26 Sex: F MR #: [id number] DOS: 02/20/17 1534 Ordering MD: MAKAYLA GRANGER PA-C Location: [facility] Room/Bed: PROCEDURE: CT Brain without. CLINICAL INDICATION: Headache. TECHNIQUE: A CT of the brain was performed on multidetector high-resolution CT scanner utilizing axial sections from the skull base through the vertex without contrast. The scan was reviewed in soft tissue brain and high frequency resolution bone algorithm windows. Images were reviewed on a high- resolution PACS workstation. One or more the following does reduction techniques were utilized: Automated exposure control, adjustment of the mA/ or kV according to patient's size, or use of iterative reconstruction technique. The exam CTDI = 43.27 mGy and the DLP = 720.23 mGy-cm. DICOM images are available. COMPARISON: None available. FINDINGS: The ventricles and sulci are age-appropriate. There is no intracranial hemorrhage, mass effect or midline shift. No abnormal intra-axial or extra- axial fluid collections are seen. The bonner/white matter differentiation is preserved. No acute skull abnormality is noted. The visualized paranasal sinuses demonstrate mild mucosal thickening mainly in ethmoid air cells. The mastoid air cells are essentially clear. IMPRESSION: 1. No acute intracranial hemorrhage, transcortical infarction or mass effect. ER Course: 1 L NS, IV toradol, IV benadryl, IV [place] MDM: 26 yr old female complaining of facial pain. Upon reevaluation patient' s symptoms improve. I have low suspicion for intracranial hemorrhage or mass- effect. I have low suspicion for neurodeficit. I have low suspicion for meningitis or sepsis. Patient's symptoms improved after fluids and medication. Patient will be discharged with headache medication and told to follow-up with primary care within 1-2 days for close evaluation. Patient is given strict ER precautions. All questions answered discharge per Departure Diagnosis: Primary Impression: [place] (headache) Condition: Stable Patient Instructions: Self-Care for Headaches Additional Instructions: FOLLOW UP WITH YOUR PRIMARY CARE PHYSICIAN TOMORROW.Return to this facility if you are not improving as expected. KIANA GRANGER PA-C Feb 20, 2017 19:00
== END 2017-02-20 17:54 | disposition home or self-care (01) ==
LOC: FTE 15:04
DX: R51 Headache (principal); R10.2 Pelvic and perineal pain
CPT/HCPCS: 70450; 80053; 81001; 83690; 84703; 85025; J1200; J1885; J2765; J7030; 36415; 96374; 96375